=== PATIENT | female | born 1965 | race Hispanic/Latino ===

== ENCOUNTER 2018-09-09 15:37 | Inpatient (IN) | payer MEDICARE ==
--- NOTE | 2018-09-09 16:06 | Emergency Department Report ---
Blank Doc - Documentation Documentation: 53 y/o female with a history of COPD comes in c/o cough and SOB. CXR, cbc, cmp
--- NOTE | 2018-09-09 16:36 | XRay Report ---
XR CHEST ROUTINE 2V CLINICAL INDICATION: Female, 53 years of age. sob COMPARISON: None. Findings: Frontal and lateral views of the chest were obtained. Cardiac silhouette is within normal limits. No focal consolidation or effusion. No pneumothorax. Visualized bony structures are grossly intact. IMPRESSION: No focal consolidation or effusion. This document is electronically signed by Patel Ellington DO., September 09 2018 04:34:32 PM ET
[2018-09-09 16:59] LABS: Basophils % (Auto) 0.4 % (0.0-1.8); Eosinophils # (Auto) 0.2 K/mm3 (0.0-0.4); Eosinophils % (Auto) 2.5 % (0.0-4.3); Hematocrit 40.5 % (30.3-42.9); Hemoglobin 13.8 gm/dl (10.1-14.3); Lymphocytes # (Auto) 2.3 K/mm3 (1.2-5.4); Lymphocytes % (Auto) 25.1 % (13.4-35.0); Mean Corpuscular HGB Conc 34 % (30-34); Mean Corpuscular Volume 94 fl (79-97); Monocytes # (Auto) 0.5 K/mm3 (0.0-0.8); Monocytes % (Auto) 5.6 % (0.0-7.3); Platelet Count 201 K/mm3 (140-440); Red Blood Count 4.31 M/mm3 (3.65-5.03); Red Cell Distribution Width 13.4 % (13.2-15.2)
[2018-09-09] MEDS ORDERED: PROVENTIL IH ONE (17:03)
[2018-09-09] MEDS ORDERED: ATROVENT IH ONE (17:03)
[2018-09-09] MEDS ORDERED: SOLU-Medrol IV ONE (17:03)
[2018-09-09] MEDS ORDERED: MORPHINE IV ONE (17:03)
[2018-09-09 17:09] LABS: Alanine Aminotransferase 8 units/L (7-56); Albumin 3.9 g/dL (3.9-5); BUN/Creatinine Ratio 16; Blood Urea Nitrogen 8 mg/dL (7-17); Calcium 9.1 mg/dL (8.4-10.2); Hemolysis Index 16
[2018-09-09] MEDS ORDERED: ZOFRAN ONE (17:32)
[2018-09-09] MEDS ORDERED: ZOFRAN IV ONE (17:36)
--- NOTE | 2018-09-09 19:19 | Emergency Department Report ---
- General Chief Complaint: Dyspnea/Respdistress Stated Complaint: CHEST PAIN/LANCE Time Seen by Provider: 09/09/18 17:01 Source: patient, EMS Mode of arrival: Wheelchair Limitations: No Limitations - History of Present Illness Initial Comments: Patient is a 53-year-old females had some increased shortness of breath for the past 2-3 days. Patient states she had cough shortness of breath. Patient is a history of COPD. Patient states she is taken 6 vials of albuterol at home today with no relief. Patient denies any fevers chills nausea vomiting or diarrhea. Improves With: nothing Worsens With: nothing Associated Symptoms: rhinorrhea, nasal congestion, cough, shortness of breath. denies: fever, chills, myalgias, diaphoresis, headache, stiff neck, chest pain, abdominal pain, nausea, vomiting, diarrhea, dysuria, rash, confusion, right sweats, weight loss, epistaxis, hoarseness, ear pain, other - Related Data Home Medications Medication Instructions Recorded Confirmed Last Taken ALBUTEROL NEB's [Proventil] 2.5 mg IH Q6H 01/05/18 01/09/18 01/09/18 04:45 Albuterol Sulfate [Ventolin Hfa] 2 puff IH Q6H 01/05/18 01/05/18 01/08/18 Clopidogrel Bisulfate [Clopidogrel] 75 mg PO DAILY 01/05/18 01/05/18 01/08/18 Ergocalciferol [Vitamin D2] 1 cap PO QWEEK 01/05/18 01/09/18 01/05/18 Fluticasone Propionate [Flovent 2 puff IH Q6H 01/05/18 01/05/18 01/08/18 110 MCG/PUFF HFA] Furosemide [Lasix TAB] 40 mg PO DAILY 01/05/18 01/05/18 01/08/18 Gabapentin [Neurontin] 300 mg PO TID 01/05/18 01/05/18 01/08/18 Ipratropium [Atrovent] 0.5 mg IH Q6H 01/05/18 01/05/18 01/08/18 Loratadine [Claritin] 10 mg PO DAILY 01/05/18 01/05/18 01/08/18 Nitroglycerin [Nitrostat] 0.4 mg SL PRN PRN 01/05/18 01/09/18 12/12/17 Pantoprazole [Protonix] 40 mg PO QDAY 01/05/18 01/05/18 01/08/18 Ramipril 2.5 mg PO DAILY 01/05/18 01/05/18 01/08/18 Venlafaxine [Effexor] 75 mg PO DAILY 01/05/18 01/05/18 01/08/18 lamoTRIgine [Lamictal] 150 mg PO BID 01/05/18 01/05/18 01/08/18 Allergies Allergy/AdvReac Type Severity Reaction Status Date / Time aspirin Allergy Anaphylaxis Verified 09/09/18 15:41 ibuprofen Allergy Anaphylaxis Verified 09/09/18 15:41 naproxen [From Aleve] Allergy Anaphylaxis Verified 09/09/18 15:41 NSAIDS (Non-Steroidal Allergy Anaphylaxis Verified 09/09/18 15:41 Anti-Inflamma ED Review of Systems ROS: Stated complaint: CHEST PAIN/LANCE Other details as noted in HPI Comment: All other systems reviewed and negative ED Past Medical Hx - Past Medical History Hx Hypertension: Yes Hx Diabetes: Yes Hx COPD: Yes - Surgical History Additional Surgical History: artery surgery - Social History Smoking Status: Current Every Day Smoker Substance Use Type: None - Medications Home Medications: Home Medications Medication Instructions Recorded Confirmed Last Taken Type ALBUTEROL NEB's [Proventil] 2.5 mg IH Q6H 01/05/18 01/09/18 01/09/18 04:45 History Albuterol Sulfate [Ventolin Hfa] 2 puff IH Q6H 01/05/18 01/05/18 01/08/18 History Clopidogrel Bisulfate [Clopidogrel] 75 mg PO DAILY 01/05/18 01/05/18 01/08/18 History Ergocalciferol [Vitamin D2] 1 cap PO QWEEK 01/05/18 01/09/18 01/05/18 History Fluticasone Propionate [Flovent 2 puff IH Q6H 01/05/18 01/05/18 01/08/18 History 110 MCG/PUFF HFA] Furosemide [Lasix TAB] 40 mg PO DAILY 01/05/18 01/05/18 01/08/18 History Gabapentin [Neurontin] 300 mg PO TID 01/05/18 01/05/18 01/08/18 History Ipratropium [Atrovent] 0.5 mg IH Q6H 01/05/18 01/05/18 01/08/18 History Loratadine [Claritin] 10 mg PO DAILY 01/05/18 01/05/18 01/08/18 History Nitroglycerin [Nitrostat] 0.4 mg SL PRN PRN 01/05/18 01/09/18 12/12/17 History Pantoprazole [Protonix] 40 mg PO QDAY 01/05/18 01/05/18 01/08/18 History Ramipril 2.5 mg PO DAILY 01/05/18 01/05/18 01/08/18 History Venlafaxine [Effexor] 75 mg PO DAILY 01/05/18 01/05/18 01/08/18 History lamoTRIgine [Lamictal] 150 mg PO BID 01/05/18 01/05/18 01/08/18 History ED Physical Exam - General Limitations: No Limitations General appearance: alert, in no apparent distress - Head Head exam: Present: atraumatic, normocephalic - Eye Eye exam: Present: normal appearance - ENT ENT exam: Present: mucous membranes moist - Neck Neck exam: Present: normal inspection - Respiratory Respiratory exam: Present: respiratory distress, wheezes. Absent: normal lung sounds bilaterally, rales, rhonchi, stridor - Cardiovascular Cardiovascular Exam: Present: regular rate, normal rhythm. Absent: systolic murmur, diastolic murmur, rubs, gallop - GI/Abdominal GI/Abdominal exam: Present: soft, normal bowel sounds. Absent: distended, guarding, rebound - Extremities Exam Extremities exam: Present: normal inspection - Back Exam Back exam: Present: normal inspection - Neurological Exam Neurological exam: Present: alert, oriented X3 - Psychiatric Psychiatric exam: Present: normal affect, normal mood - Skin Skin exam: Present: warm, dry, intact, normal color. Absent: rash ED Course Vital Signs 09/09/18 09/09/18 09/09/18 15:48 17:19 18:57 Temperature 99 F 99.1 F Pulse Rate 99 H 98 H 97 H Respiratory 24 17 18 Rate Blood Pressure 131/71 Blood Pressure 125/53 96/42 [Right] O2 Sat by Pulse 97 93 92 Oximetry ED Medical Decision Making - Lab Data Result diagrams: 09/09/18 16:09 09/09/18 16:06 Lab Results 09/09/18 09/09/18 Range/Units 16:06 16:09 WBC 9.2 (4.5-11.0) K/mm3 RBC 4.31 (3.65-5.03) M/mm3 Hgb 13.8 (10.1-14.3) gm/dl Hct 40.5 (30.3-42.9) % MCV 94 (79-97) fl MCH 32 (28-32) pg MCHC 34 (30-34) % RDW 13.4 (13.2-15.2) % Plt Count 201 (140-440) K/mm3 Lymph % (Auto) 25.1 (13.4-35.0) % [place] % (Auto) 5.6 (0.0-7.3) % Eos % (Auto) 2.5 (0.0-4.3) % Baso % (Auto) 0.4 (0.0-1.8) % Lymph # 2.3 (1.2-5.4) K/mm3 [place] # 0.5 (0.0-0.8) K/mm3 Eos # 0.2 (0.0-0.4) K/mm3 Baso # 0.0 (0.0-0.1) K/mm3 Seg Neutrophils % 66.4 (40.0-70.0) % Seg Neutrophils # 6.1 (1.8-7.7) K/mm3 Sodium 138 (137-145) mmol/L Potassium 4.3 (3.6-5.0) mmol/L Chloride 104.4 (98-107) mmol/L Carbon Dioxide 22 (22-30) mmol/L Anion Gap 16 mmol/L BUN 8 (7-17) mg/dL Creatinine 0.5 L (0.7-1.2) mg/dL Estimated GFR > 60 ml/min BUN/Creatinine Ratio 16 % Glucose 86 (65-100) mg/dL Calcium 9.1 (8.4-10.2) mg/dL Total Bilirubin 0.30 (0.1-1.2) mg/dL AST 14 (5-40) units/L ALT 8 (7-56) units/L Alkaline Phosphatase 83 (35-129) units/L Total Protein 7.2 (6.3-8.2) g/dL Albumin 3.9 (3.9-5) g/dL Albumin/Globulin Ratio 1.2 % - EKG Data -: EKG Interpreted by Me EKG shows normal: sinus rhythm, axis, intervals, QRS complexes, ST-T waves Rate: tachycardia - Radiology Data Radiology results: image reviewed (hyperinflation consistent with COPD) - Medical Decision Making Patient received a hour-long neb treatments steroids because continued to have wheezing here in the emergency department. Patient to be admitted to the hospitalist service at this time. Critical Care Time: Yes (30) Critical care attestation.: If time is entered above; I have spent that time in minutes in the direct care of this critically ill patient, excluding procedure time. ED Disposition Clinical Impression: COPD exacerbation Disposition: OP ADMIT IP TO THIS HOSP Is pt being admited?: Yes Does the pt Need Aspirin: No Condition: Stable Instructions: Chronic Obstructive Pulmonary Disease (ED) Referrals: CURT STANLEY MD [Primary Care Provider] - 3-5 Days Time of Disposition: 19:19
[2018-09-09] MEDS ORDERED: DUONEB *Not for PRN Use IH ONE (20:42)
--- NOTE | 2018-09-09 21:32 | History and Physical Report ---
History of Present Illness Date of examination: 09/09/18 Date of admission: 09/09/18 19:19 Chief complaint: Increasing shortness of breath and wheezing for 3 days History of present illness: 53-year-old female with history of COPD, vitamin D deficiency, cor onary artery disease, congestive heart failure, hypertension, depression and peripheral neuropathy comes in for increasing shortness of breath and wheezing for last 3 days. No fever or chills. Cough productive of mucoid sputum. Patient was admitted about 8-9 months ago for the same symptoms. No exacerbating or relieving factors. Past Medical History Hypertension: Yes Diabetes: Yes COPD: Yes Surgical History Additional Surgical History: artery surgery Social History Smoking Status: Current Every Day Smoker Substance Use Type: None Family history Htn Review of Systems ROS: Stated complaint: CHEST PAIN/LANCE Other details as noted in HPI Comment: All other systems reviewed and negative Medications and Allergies Allergies Allergy/AdvReac Type Severity Reaction Status Date / Time aspirin Allergy Anaphylaxis Verified 09/09/18 15:41 ibuprofen Allergy Anaphylaxis Verified 09/09/18 15:41 naproxen [From Aleve] Allergy Anaphylaxis Verified 09/09/18 15:41 NSAIDS (Non-Steroidal Allergy Anaphylaxis Verified 09/09/18 15:41 Anti-Inflamma Home Medications Medication Instructions Recorded Confirmed Last Taken Type ALBUTEROL NEB's [Proventil] 2.5 mg IH Q6H 01/05/18 01/09/18 01/09/18 04:45 Hi story Albuterol Sulfate [Ventolin Hfa] 2 puff IH Q6H 01/05/18 01/05/18 01/08/18 History Clopidogrel Bisulfate [Clopidogrel] 75 mg PO DAILY 01/05/18 01/05/18 01/08/18 History Ergocalciferol [Vitamin D2] 1 cap PO QWEEK 01/05/18 01/09/18 01/05/18 History Fluticasone Propionate [Flovent 2 puff IH Q6H 01/05/18 01/05/18 01/08/18 History 110 MCG/PUFF HFA] Furosemide [Lasix TAB] 40 mg PO DAILY 01/05/18 01/05/18 01/08/18 History Gabapentin [Neurontin] 300 mg PO TID 01/05/18 01/05/18 01/08/18 History Ipratropium [Atrovent] 0.5 mg IH Q6H 01/05/18 01/05/18 01/08/18 History Loratadine [Claritin] 10 mg PO DAILY 01/05/18 01/05/18 01/08/18 History Nitroglycerin [Nitrostat] 0.4 mg SL PRN PRN 01/05/18 01/09/18 12/12/17 History Pantoprazole [Protonix] 40 mg PO QDAY 01/05/18 01/05/18 01/08/18 History Ramipril 2.5 mg PO DAILY 01/05/18 01/05/18 01/08/18 History Venlafaxine [Effexor] 75 mg PO DAILY 01/05/18 01/05/18 01/08/18 History lamoTRIgine [Lamictal] 150 mg PO BID 01/05/18 01/05/18 01/08/18 History Exam - Constitutional Vitals: Temp Pulse Resp BP Pulse Ox 99.4 F 103 H 20 94/48 95 09/09/18 20:00 09/09/18 20:00 09/09/18 20:00 09/09/18 20:00 09/09/18 20:00 General appearance: Present: no acute distress, well-nourished - EENT Eyes: Present: PERRL ENT: hearing intact, clear oral mucosa - Neck Neck: Present: supple, normal ROM - Respiratory Respiratory effort: normal Respiratory: bilateral: diminished, rhonchi - Cardiovascular Heart rate: 78 Rhythm: regular Heart Sounds: Present: S1 & S2. Absent: rub, click - Extremities Extremities: pulses symmetrical, No edema Peripheral Pulses: within normal limits - Abdominal General gastrointestinal: Present: soft, non-tender, non-distended, normal bowel sounds Female genitourinary: Present: normal - Rectal Rectal Exam: deferred - Integumentary Integumentary: Present: clear, warm, dry - Musculoskeletal Musculoskeletal: gait normal, strength equal bilaterally - Psychiatric Psychiatric: appropriate mood/affect, intact judgment & insight - Neurologic Neurologic: CNII-XII intact, moves all extremities - Allied Health Allied health notes reviewed: nursing, case management Results - Labs CBC & Chem 7: 09/09/18 16:09 09/09/18 16:06 Labs: Laboratory Last Values WBC 9.2 K/mm3 (4.5-11.0) 04/28/19 16:09 RBC 4.31 M/mm3 (3.65-5.03) 09/09/18 16:09 Hgb 13.8 gm/dl (10.1-14.3) 09/09/18 16:09 Hct 40.5 % (30.3-42.9) 09/09/18 16:09 MCV 94 fl (79-97) 09/09/18 16:09 MCH 32 pg (28-32) 09/09/18 16:09 MCHC 34 % (30-34) 09/09/18 16:09 RDW 13.4 % (13.2-15.2) 09/09/18 16:09 Plt Count 201 K/mm3 (140-440) 09/09/18 16:09 Lymph % (Auto) 25.1 % (13.4-35.0) 09/09/18 16:09 [place] % (Auto) 5.6 % (0.0-7.3) 09/09/18 16:09 Eos % (Auto) 2.5 % (0.0-4.3) 09/09/18 16:09 Baso % (Auto) 0.4 % (0.0-1.8) 09/09/18 16:09 Lymph # 2.3 K/mm3 (1.2-5.4) 09/09/18 16:09 [place] # 0.5 K/mm3 (0.0-0.8) 09/09/18 16:09 Eos # 0.2 K/mm3 (0.0-0.4) 09/09/18 16:09 Baso # 0.0 K/mm3 (0.0-0.1) 09/09/18 16:09 Seg Neutrophils % 66.4 % (40.0-70.0) 09/09/18 16:09 Seg Neutrophils # 6.1 K/mm3 (1.8-7.7) 09/09/18 16:09 Sodium 138 mmol/L (137-145) 09/09/18 16:06 Potassium 4.3 mmol/L (3.6-5.0) 09/09/18 16:06 Chloride 104.4 mmol/L (98-107) 09/09/18 16:06 Carbon Dioxide 22 mmol/L (22-30) 09/09/18 16:06 Anion Gap 16 mmol/L 09/09/18 16:06 BUN 8 mg/dL (7-17) 09/09/18 16:06 Creatinine 0.5 mg/dL (0.7-1.2) L 09/09/18 16:06 Estimated GFR > 60 ml/min 09/09/18 16:06 BUN/Creatinine Ratio 16 % 09/09/18 16:06 Glucose 86 mg/dL (65-100) 09/09/18 16:06 Calcium 9.1 mg/dL (8.4-10.2) 09/09/18 16:06 Total Bilirubin 0.30 mg/dL (0.1-1.2) 09/09/18 16:06 AST 14 units/L (5-40) 09/09/18 16:06 ALT 8 units/L (7-56) 09/09/18 16:06 Alkaline Phosphatase 83 units/L (35-129) 09/09/18 16:06 Total Protein 7.2 g/dL (6.3-8.2) 09/09/18 16:06 Albumin 3.9 g/dL (3.9-5) 09/09/18 16:06 Albumin/Globulin Ratio 1.2 % 09/09/18 16:06 - Imaging and Cardiology EKG: report reviewed Imaging and Cardiology: Chest x-ray Findings: Frontal and lateral views of the chest were obtained. Cardiac silhouette is within normal limits. No focal consolidation or effusion. No pneumothorax. Visualized bony structures are grossly intact. IMPRESSION: No focal consolidation or effusion. EKG Sinus tachycardia nonspecific T-wave abnormalities heart rate of 106 Assessment and Plan Advance Directives: Yes (full code) VTE prophylaxis?: Chemical Plan of care discussed with patient/family: Yes - Patient Problems (1) Acute respiratory failure Current Visit: Yes Status: Acute Qualifiers: Respiratory failure complication: hypoxia Qualified Code(s): J96.01 - Acute respiratory failure with hypoxia Plan to address problem: Patient initiated on IV Solu-Medrol 50% Ventimask IV antibiotics and nebulizer treatments. BiPAP if necessary Intubation for necessary (2) COPD exacerbation Current Visit: Yes Status: Acute Plan to address problem: IV Solu-Medrol nebulizer treatments and IV antibiotics BiPAP if necessary Intubation if necessary (3) Coronary artery disease Current Visit: Yes Status: Chronic Qualifiers: Coronary Disease-Associated Artery/Lesion type: [place] artery [place] vs. transplanted heart: [place] heart Plan to address problem: Continue Plavix and aspirin and nitroglycerin when necessary (4) Hypertension Current Visit: Yes Status: Chronic Qualifiers: Hypertension type: essential hypertension Qualified Code(s): I10 - Essential (primary) hypertension Plan to address problem: Blood pressure is borderline Will hold the Ramipril (5) Peripheral neuropathy Current Visit: Yes Status: Acute Qualifiers: Peripheral neuropathy type: polyneuropathy, unspecified Qualified Code(s): G62.9 - Polyneuropathy, unspecified Plan to address problem: Continue gabapentin (6) GERD (gastroesophageal reflux disease) Current Visit: Yes Status: Chronic Qualifiers: Esophagitis presence: with esophagitis Qualified Code(s): K21.0 - Gastro- esophageal reflux disease with esophagitis Plan to address problem: Continue Protonix (7) Vitamin D deficiency Current Visit: Yes Status: Acute Plan to address problem: Continue vitamin D (8) DVT prophylaxis Current Visit: Yes Status: Acute Plan to address problem: On Lovenox and GI prophylaxis
[2018-09-09] MEDS ORDERED: TYLENOL PO PRN (21:37)
[2018-09-09] MEDS ORDERED: ZOFRAN IV PRN (21:37)
[2018-09-09] MEDS ORDERED: DILAUDID IV PRN (21:38)
[2018-09-09] MEDS ORDERED: PROAIR IH SCH (21:45)
[2018-09-09] MEDS ORDERED: FLUTICASONE PROPIONATE IH SCH (21:45)
[2018-09-09] MEDS ORDERED: PROVENTIL IH SCH (21:45)
[2018-09-09] MEDS ORDERED: NACL 0.9% 1000 ML 1,000 ML IV SCH (22:00)
[2018-09-09] MEDS ORDERED: NON-FORMULARY (Lamotrigine [Lamictal] 150 MG) PO SCH (22:00)
[2018-09-10] MEDS: ROCEPHIN/NS 2 GM/100 ML 2 GM/100 ML BAG IV SCH ×2 (00:31→22:42)
[2018-09-10] MEDS: ZITHROMAX 500 MG in NACL 0.9% 250ML 250 ML IV SCH ×2 (00:35→21:09)
[2018-09-10] MEDS: SOLU-Medrol IV SCH ×4 (00:37→21:11)
[2018-09-10] MEDS: LaMICtal PO SCH ×3 (00:39→21:05)
[2018-09-10] MEDS: LASIX PO SCH ×2 (00:40→09:01)
[2018-09-10] MEDS: PLAVIX PO SCH ×2 (00:40→09:06)
[2018-09-10] MEDS: CLARITIN PO SCH ×2 (00:41→09:01)
[2018-09-10] MEDS: PROTONIX PO SCH ×2 (00:41→09:06)
[2018-09-10] MEDS: SODIUM CHLORIDE FLUSH SYRINGE 10 ML IV SCH ×3 (00:42→21:11)
[2018-09-10] MEDS: PERCOCET 5/325 PO PRN ×2 (05:06→21:25)
--- NOTE | 2018-09-10 07:07 | Progress Note ---
Assessment and Plan Assessment and plan: Patient is a 53 yo woman with a history of tobacco dependency, Bipolar disorder, PAD s/p right common femoral artery bypass followed by endarterectomy, morbid obesity bmi 66.6, COPD, vitamin D deficiency, coronary artery disease, congestive heart failure, hypertension, depression and peripheral neuropathy who presents to [facility] ED with sob and cough. She was admitted for respiratory failure due to AECOPD as pO2 was on 67 on 2 liters O2. 2v CXR unremarkable. Acute Hypoxic Respiratory failure: treat with O2, consult Pulmonology AE COPD: treat with steroids, nebs, abx Tobacco dependency: strongly encourage cessation DVT/GI ppx reviewed on lovenox and protonix Home reconciliation done but I don't think is it up to date, why lamictal==>bipolar, effexor==>not on anymore, I have asked the nurse to update home medications. full code Disposition: continue inpatient care, daily O2 weaning attempts History Interval history: Patient was seen and examined. Follow-up on current diagnosis of COPD, better with iv steroids. Overnight uneventful. Patient denies any chest pain, nausea/vomiting or severe headaches. Imaging, nursing note, chart, labs and old chart reviewed. Discussed with patient. Hospitalist Physical - Physical exam Narrative exam: Gen: WDWN, NAD, Awake, Alert, Orientated x 3, HEENT: NCAT, EOMI, PERRL, OP Clear Neck: supple, no adenopathy, no thyromegaly, no JVD CVS/Heart: RRR, normal S1S2, pulses present bilaterally Chest/Lungs: diminished bs bilaterally, Symmetrical chest expansion, good air entry bilaterally GI/Abdomen: soft, NTND, good bowel sounds, no guarding or rebound /Bladder: no suprapubic tenderness, no CVA or paraspinal tenderness Extermity/Skin: no c/c/e, no obvious rash MSK: FROM x 4 Neuro: CN 2-12 grossly intact, no new focal deficits Psych: calm - Constitutional Vitals: Temp Pulse Resp BP Pulse Ox 97.6 F 84 20 127/64 92 09/10/18 04:40 09/10/18 04:40 09/10/18 04:40 09/10/18 04:40 09/10/18 04:40 General appearance: Present: no acute distress, well-nourished Results - Labs CBC & Chem 7: 09/09/18 16:09 09/10/18 06:51 Labs: Laboratory Last Values WBC 9.2 K/mm3 (4.5-11.0) 09/09/18 16:09 RBC 4.31 M/mm3 (3.65-5.03) 09/09/18 16:09 Hgb 13.8 gm/dl (10.1-14.3) 09/09/18 16:09 Hct 40.5 % (30.3-42.9) 09/09/18 16:09 MCV 94 fl (79-97) 09/09/18 16:09 MCH 32 pg (28-32) 09/09/18 16:09 MCHC 34 % (30-34) 09/09/18 16:09 RDW 13.4 % (13.2-15.2) 09/09/18 16:09 Plt Count 201 K/mm3 (140-440) 09/09/18 16:09 Lymph % (Auto) 25.1 % (13.4-35.0) 09/09/18 16:09 [place] % (Auto) 5.6 % (0.0-7.3) 09/09/18 16:09 Eos % (Auto) 2.5 % (0.0-4.3) 09/09/18 16:09 Baso % (Auto) 0.4 % (0.0-1.8) 09/09/18 16:09 Lymph # 2.3 K/mm3 (1.2-5.4) 09/09/18 16:09 [place] # 0.5 K/mm3 (0.0-0.8) 09/09/18 16:09 Eos # 0.2 K/mm3 (0.0-0.4) 09/09/18 16:09 Baso # 0.0 K/mm3 (0.0-0.1) 09/09/18 16:09 Seg Neutrophils % 66.4 % (40.0-70.0) 09/09/18 16:09 Seg Neutrophils # 6.1 K/mm3 (1.8-7.7) 09/09/18 16:09 POC ABG pH 7.347 (7.35-7.45) L 09/09/18 23:23 POC ABG pCO2 39.6 (35-45) 09/09/18 23:23 POC ABG pO2 67 (80-105) L 09/09/18 23:23 POC ABG HCO3 21.7 (22-26 mml/L) 09/09/18 23:23 POC ABG Total CO2 23 (23-27mmol/L) 09/09/18 23:23 POC ABG O2 Sat 92 09/09/18 23:23 POC ABG Base Excess -4 ((-2) - (+3)mmol/L) 09/09/18 23:23 FiO2 28 % 09/09/18 23:23 Sodium 138 mmol/L (137-145) 09/09/18 16:06 Potassium 4.3 mmol/L (3.6-5.0) 09/09/18 16:06 Chloride 104.4 mmol/L (98-107) 09/09/18 16:06 Carbon Dioxide 22 mmol/L (22-30) 09/09/18 16:06 Anion Gap 16 mmol/L 09/09/18 16:06 BUN 8 mg/dL (7-17) 09/09/18 16:06 Creatinine 0.5 mg/dL (0.7-1.2) L 09/09/18 16:06 Estimated GFR > 60 ml/min 09/09/18 16:06 BUN/Creatinine Ratio 16 % 09/09/18 16:06 Glucose 86 mg/dL (65-100) 09/09/18 16:06 Hemoglobin A1c 5.8 % (4-6) 09/09/18 16:09 Calcium 9.1 mg/dL (8.4-10.2) 09/09/18 16:06 Total Bilirubin 0.30 mg/dL (0.1-1.2) 09/09/18 16:06 AST 14 units/L (5-40) 09/09/18 16:06 ALT 8 units/L (7-56) 09/09/18 16:06 Alkaline Phosphatase 83 units/L (35-129) 09/09/18 16:06 Total Protein 7.2 g/dL (6.3-8.2) 09/09/18 16:06 Albumin 3.9 g/dL (3.9-5) 09/09/18 16:06 Albumin/Globulin Ratio 1.2 % 09/09/18 16:06 Active Medications - Current Medications Current Medications: Generic Name Dose Route Start Last Admin Trade Name Freq PRN Reason Stop Dose Admin Acetaminophen 650 mg 09/09/18 21:37 Tylenol PO Q4H PRN Pain MILD(1-3)/Fever >100.5/[place] Albuterol 2.5 mg 09/09/18 21:40 Proventil IH Q4HRT PRN Shortness Of Breath Albuterol/Ipratropium 1 ampul 09/10/18 08:00 Duoneb *Not For Prn Use* IH QIDRT BISHOP Budesonide 1 mg 09/10/18 08:00 Pulmicort IH Q12HRT BISHOP Clopidogrel Bisulfate 75 mg 09/09/18 22:00 09/10/18 00:40 Plavix PO 75 mg DAILY BISHOP Administration Enoxaparin Sodium 40 mg 09/10/18 22:00 Lovenox SUB-Q QDAY@2200 [facility] Ergocalciferol 50,000 unit 09/13/18 10:00 Vitamin D2 PO Th BISHOP Furosemide 40 mg 09/09/18 22:00 09/10/18 00:40 Lasix PO 40 mg DAILY BISHOP Administration Gabapentin 300 mg 09/10/18 08:00 Neurontin PO TID BISHOP Hydromorphone HCl 0.5 mg 09/09/18 21:38 Dilaudid IV Q3H PRN Pain , Severe (7-10) Sodium Chloride 1,000 mls @ 75 mls/hr 09/09/18 22:00 09/10/18 00:22 Nacl 0.9% 1000 Ml IV 09/10/18 11:00 75 mls/hr DIRECT BISHOP Administration Azithromycin 500 mg/ Sodium 250 mls @ 250 mls/hr 09/09/18 22:00 09/10/18 00:35 Chloride IV 250 mls/hr Q24HR@2200 BISHOP Administration Ceftriaxone Sodium 2 gm in 100 mls @ 200 mls/hr 09/09/18 22:00 09/10/18 00:31 Rocephin/Ns 2 Gm/100 Ml IV 200 mls/hr Q24HR@2200 BISHOP Administration Protocol Lamotrigine 150 mg 09/09/18 22:00 09/10/18 00:39 Lamictal PO 150 mg BID BISHOP Administration Loratadine 10 mg 09/09/18 22:00 09/10/18 00:41 Claritin PO 10 mg DAILY BISHOP Administration Methylprednisolone Sodium Succinate 60 mg 09/09/18 22:00 09/10/18 05:07 Solu-Medrol IV 60 mg Q8HR BISHOP Administration Ondansetron HCl 4 mg 09/09/18 21:37 Zofran IV Q8H PRN Nausea And Vomiting Oxycodone/Acetaminophen 1 tab 09/09/18 21:38 09/10/18 05:06 Percocet 5/325 PO 1 tab Q6H PRN Administration Pain, Moderate (4-6) Pantoprazole Sodium 40 mg 09/09/18 22:00 09/10/18 00:41 Protonix PO 40 mg QDAY BISHOP Administration Sodium Chloride 10 ml 09/09/18 22:00 09/10/18 00:42 Sodium Chloride Flush Syringe 10 Ml IV 10 ml BID BISHOP Administration Sodium Chloride 10 ml 09/09/18 21:37 Sodium Chloride Flush Syringe 10 Ml IV PRN PRN LINE FLUSH Venlafaxine HCl 75 mg 09/10/18 10:00 Effexor PO DAILY BISHOP
[2018-09-10] MEDS: DUONEB *Not for PRN Use IH SCH ×4 (07:43→19:30)
[2018-09-10 07:46] LABS: Alanine Aminotransferase 9 units/L (7-56); Albumin 3.8 g/dL (3.9-5); BUN/Creatinine Ratio 26; Blood Urea Nitrogen 13 mg/dL (7-17); Calcium 8.5 mg/dL (8.4-10.2); Hemolysis Index 2
[2018-09-10] MEDS ORDERED: PULMICORT IH SCH (08:00)
[2018-09-10] MEDS: NEURONTIN PO SCH ×3 (08:54→21:09)
[2018-09-10] MEDS ORDERED: EFFEXOR PO SCH (10:00)
[2018-09-10 11:03] LABS: Hemoglobin 12.9 gm/dl (10.1-14.3); Mean Corpuscular Volume 95 fl (79-97); Red Blood Count 4.01 M/mm3 (3.65-5.03)
[2018-09-10 11:04] LABS: Mean Corpuscular HGB Conc 34 % (30-34); Platelet Count 180 K/mm3 (140-440); Red Cell Distribution Width 13.5 % (13.2-15.2)
[2018-09-10] MEDS ORDERED: D50W (25GM) Syringe IV PRN (13:28)
[2018-09-10 13:55] LABS: Basophils % (Manual) 0 % (0.0-1.8); Eosinophils % (Manual) 0 % (0.0-4.3); Total Cells Counted 100
[2018-09-10 13:56] LABS: Platelet Estimate Consistent w Auto; RBC Morphology Normal
[2018-09-10] MEDS ORDERED: HumaLOG SUB-Q ONE (14:25)
--- NOTE | 2018-09-10 14:27 | Consultation ---
History of Present Illness Consult date: 09/10/18 Reason for consult: dyspnea, cough History of present illness: PULMONARY AND CRITICAL CARE CONSULTATION DR. TAVERA THANK YOU FOR ASKING US TO PARTICIPATE IN THE CARE OF THIS PATIENT. 53-year-old female with history of COPD, vitamin D deficiency, coronary artery disease, congestive heart failure, hypertension, depression and peripheral neuropathy comes in for increasing shortness of breath and wheezing for last 3 days. No fever or chills. Cough productive of mucoid sputum. Patient was admitted about 8-9 months ago for the same symptoms. Patient has history of smoking. Patient still smoking. Counselled to stop smoking.Denies alcohol or drug abuse.Allergic to multiple medications Aspirin, Ibuprofen, Naproxin,ASAIDS. Past History Past Medical History: CAD, COPD, diabetes, hypertension Medications and Allergies Allergies Allergy/AdvReac Type Severity Reaction Status Date / Time aspirin Allergy Anaphylaxis Verified 09/09/18 15:41 ibuprofen Allergy Anaphylaxis Verified 09/09/18 15:41 naproxen [From Aleve] Allergy Anaphylaxis Verified 09/09/18 15:41 NSAIDS (Non-Steroidal Allergy Anaphylaxis Verified 09/09/18 15:41 Anti-Inflamma Home Medications Medication Instructions Recorded Confirmed Last Taken Type ALBUTEROL NEB's [Proventil] 2.5 mg IH Q6H PRN 01/05/18 09/10/18 1 Day Ago History ~09/09/18 Albuterol Sulfate [Ventolin Hfa] 2 puff IH Q6H PRN 01/05/18 09/10/18 1 Day Ago History ~09/09/18 Clopidogrel Bisulfate [Clopidogrel] 75 mg PO DAILY 01/05/18 09/10/18 1 Day Ago History ~09/09/18 Ergocalciferol [Vitamin D2] 1 cap PO QWEEK 01/05/18 09/10/18 3 Days Ago History ~09/07/18 Fluticasone Propionate [Flovent 2 puff IH BID 01/05/18 09/10/18 1 Day Ago History 110 MCG/PUFF HFA] ~09/09/18 Furosemide [Lasix TAB] 40 mg PO DAILY 01/05/18 09/10/18 1 Day Ago History ~09/09/18 Gabapentin [Neurontin] 300 mg PO TID 01/05/18 09/10/18 1 Day Ago History ~09/09/18 Ipratropium [Atrovent] 0.5 mg IH Q6H 01/05/18 09/10/18 09/09/18 History Loratadine [Claritin] 10 mg PO DAILY 01/05/18 09/10/18 1 Day Ago History ~09/09/18 Nitroglycerin [Nitrostat] 0.4 mg SL PRN PRN 01/05/18 09/10/18 12/12/17 History Pantoprazole [Protonix] 40 mg PO QDAY 01/05/18 09/10/18 1 Day Ago History ~09/09/18 Ramipril 2.5 mg PO DAILY 01/05/18 09/10/18 1 Day Ago History ~09/09/18 Venlafaxine [Effexor] 75 mg PO DAILY 01/05/18 09/10/18 1 Day Ago History ~09/09/18 lamoTRIgine [Lamictal] 150 mg PO TID 01/05/18 09/10/18 1 Day Ago History ~09/09/18 Active Meds: Active Medications Acetaminophen (Tylenol) 650 mg PO Q4H PRN PRN Reason: Pain MILD(1-3)/Fever >100.5/[place] Albuterol (Proventil) 2.5 mg IH Q4HRT PRN PRN Reason: Shortness Of Breath Albuterol/Ipratropium (Duoneb *Not For Prn Use*) 1 ampul IH QIDRT COUNT INCLUDES THE [facility] Last Admin: 09/10/18 11:06 Dose: 1 ampul Documented by: Azithromycin (Zithromax) 500 mg PO QHS COUNT INCLUDES THE [facility] Stop: 09/13/18 22:01 Budesonide (Pulmicort) 1 mg IH Q12HRT COUNT INCLUDES THE [facility] Last Admin: 09/10/18 07:42 Dose: 1 mg Documented by: Clopidogrel Bisulfate (Plavix) 75 mg PO DAILY COUNT INCLUDES THE [facility] Last Admin: 09/10/18 09:06 Dose: 75 mg Documented by: Dextrose (D50w (25gm) Syringe) 50 ml IV PRN PRN PRN Reason: Hypoglycemia Enoxaparin Sodium (Lovenox) 40 mg SUB-Q QDAY@2200 COUNT INCLUDES THE [facility] Ergocalciferol (Vitamin D2) 50,000 unit PO Th COUNT INCLUDES THE [facility] Furosemide (Lasix) 40 mg PO DAILY COUNT INCLUDES THE [facility] Last Admin: 09/10/18 09:01 Dose: 40 mg Documented by: Gabapentin (Neurontin) 300 mg PO TID COUNT INCLUDES THE [facility] Last Admin: 09/10/18 08:54 Dose: 300 mg Documented by: Hydromorphone HCl (Dilaudid) 0.5 mg IV Q3H PRN PRN Reason: Pain , Severe (7-10) Azithromycin 500 mg/ Sodium (Chloride) 250 mls @ 250 mls/hr IV Q24HR@2200 COUNT INCLUDES THE [facility] Stop: 09/10/18 23:59 Last Admin: 09/10/18 00:35 Dose: 250 mls/hr Documented by: Ceftriaxone Sodium (Rocephin/Ns 2 Gm/100 Ml) 2 gm in 100 mls @ 200 mls/hr IV Q24HR@2200 COUNT INCLUDES THE [facility]; Protocol Last Admin: 09/10/18 00:31 Dose: 200 mls/hr Documented by: Insulin Human Lispro (Humalog) 0 unit SUB-Q ACHS COUNT INCLUDES THE [facility]; Protocol Lamotrigine (Lamictal) 150 mg PO BID COUNT INCLUDES THE [facility] Last Admin: 09/10/18 09:05 Dose: 150 mg Documented by: Loratadine (Claritin) 10 mg PO DAILY COUNT INCLUDES THE [facility] Last Admin: 09/10/18 09:01 Dose: 10 mg Documented by: Methylprednisolone Sodium Succinate (Solu-Medrol) 60 mg IV Q8HR COUNT INCLUDES THE [facility] Last Admin: 09/10/18 05:07 Dose: 60 mg Documented by: Ondansetron HCl (Zofran) 4 mg IV Q8H PRN PRN Reason: Nausea And Vomiting Oxycodone/Acetaminophen (Percocet 5/325) 1 tab PO Q6H PRN PRN Reason: Pain, Moderate (4-6) Last Admin: 09/10/18 05:06 Dose: 1 tab Documented by: Pantoprazole Sodium (Protonix) 40 mg PO QDAY COUNT INCLUDES THE [facility] Last Admin: 09/10/18 09:06 Dose: 40 mg Documented by: Sodium Chloride (Sodium Chloride Flush Syringe 10 Ml) 10 ml IV BID COUNT INCLUDES THE [facility] Last Admin: 09/10/18 09:06 Dose: 10 ml Documented by: Sodium Chloride (Sodium Chloride Flush Syringe 10 Ml) 10 ml IV PRN PRN PRN Reason: LINE FLUSH Review of Systems All systems: negative Physical Examination Vital signs: Vital Signs Temp Pulse Resp BP Pulse Ox 99 F 99 H 24 131/71 97 09/09/18 15:48 09/09/18 15:48 09/09/18 15:48 09/09/18 15:48 09/09/18 15:48 General appearance: no acute distress, alert Eyes: non-icteric ENT: oropharynx moist Neck: supple, no JVD Ascultation: Bilateral: diminished breath sounds Cardiovascular: regular rate and rhythm Gastrointestinal: normoactive bowel sounds, soft, non-tender Integumentary: normal Extremities: no cyanosis, no edema Musculoskeletal: no deformities normal mental status, non-focal exam, pupils equal and round, CN II-XII normal mood appropriate Results - Laboratory Findings CBC and BMP: 09/10/18 06:51 09/10/18 06:51 ABG POC ABG pH 7.347 (7.35-7.45) L 09/09/18 23:23 POC ABG pCO2 39.6 (35-45) 09/09/18 23:23 POC ABG pO2 67 (80-105) L 09/09/18 23:23 POC ABG HCO3 21.7 (22-26 mml/L) 09/09/18 23:23 POC ABG Total CO2 23 (23-27mmol/L) 09/09/18 23:23 POC ABG O2 Sat 92 09/09/18 23:23 Abnormal lab findings: Abnormal Labs 09/09/18 09/09/18 09/10/18 16:06 23:23 06:51 Seg Neuts % (Manual) 97.0 H Lymphocytes % (Manual) 2.0 L Lymphocytes # (Manual) 0.1 L POC ABG pH 7.347 L POC ABG pO2 67 L Creatinine 0.5 L Glucose Albumin 09/10/18 06:51 Seg Neuts % (Manual) Lymphocytes % (Manual) Lymphocytes # (Manual) POC ABG pH POC ABG pO2 Creatinine 0.5 L Glucose 140 H Albumin 3.8 L - Diagnostic Findings Chest x-ray: report reviewed (NO FOCAL INFILTRATE OR EFFUSION.), image reviewed Assessment and Plan 53-year-old female with history of COPD, vitamin D deficiency, coronary artery disease, congestive heart failure, hypertension, depression and peripheral neuropathy comes in for increasing shortness of breath and wheezing for last 3 days. No fever or chills. Cough productive of mucoid sputum. Patient was admitted about 8-9 months ago for the same symptoms. Patient has history of smoking. Patient still smoking. Counselled to stop smoking.Denies alcohol or drug abuse.Allergic to multiple medications Aspirin, Ibuprofen, Nap roxin,ASAIDS. - Patient Problems (1) Acute respiratory failure Current Visit: Yes Status: Acute Qualifiers: Respiratory failure complication: hypoxia Qualified Code(s): J96.01 - Acute respiratory failure with hypoxia Plan to address problem: O2 3 litres via nasal canula. Albuterol/atrovent aerosol treatments q 6 hours. Continue I/V solumedrol. Continue Zithromax and ceftrioxone. Continue S/C Lovenox. Continue Protonix. (2) COPD exacerbation Current Visit: Yes Status: Acute Plan to address problem: O2 3 litres via nasal canula. Albuterol/atrovent aerosol treatments q 6 hours. Continue I/V solumedrol. Continue Zithromax and ceftrioxone. Continue S/C Lovenox. Continue Protonix. (3) Coronary artery disease Current Visit: Yes Status: Chronic Qualifiers: Coronary Disease-Associated Artery/Lesion type: [place] artery [place] vs. transplanted heart: [place] heart Plan to address problem: Management as per cardiology. (4) GERD (gastroesophageal reflux disease) Current Visit: Yes Status: Chronic Qualifiers: Esophagitis presence: with esophagitis Qualified Code(s): K21.0 - Gastro- esophageal reflux disease with esophagitis Plan to address problem: Continue Protonix. (5) Hypertension Current Visit: Yes Status: Chronic Qualifiers: Hypertension type: essential hypertension Qualified Code(s): I10 - Essential (primary) hypertension Plan to address problem: Management as per primary care.
[2018-09-10] MEDS: HumaLOG SUB-Q SCH ×2 (17:58→23:05)
[2018-09-10] MEDS: PULMICORT IH SCH (19:30)
[2018-09-10] MEDS: LOVENOX SUB-Q SCH (21:09)
[2018-09-10] MEDS: SODIUM CHLORIDE FLUSH SYRINGE 10 ML IV PRN (22:45)
[2018-09-11] MEDS: PROVENTIL IH PRN (00:29)
[2018-09-11] MEDS: SOLU-Medrol IV SCH ×3 (06:59→21:17)
[2018-09-11] MEDS: SODIUM CHLORIDE FLUSH SYRINGE 10 ML IV PRN (06:59)
[2018-09-11] MEDS: DUONEB *Not for PRN Use IH SCH ×4 (08:02→20:43)
[2018-09-11] MEDS: PULMICORT IH SCH ×2 (08:02→20:43)
[2018-09-11] MEDS: HumaLOG SUB-Q SCH ×4 (08:02→22:17)
[2018-09-11] MEDS: NEURONTIN PO SCH ×3 (09:37→21:18)
[2018-09-11] MEDS: PROTONIX PO SCH (09:37)
[2018-09-11] MEDS: LASIX PO SCH (09:37)
[2018-09-11] MEDS: PLAVIX PO SCH (09:37)
[2018-09-11] MEDS: CLARITIN PO SCH (09:37)
[2018-09-11] MEDS: LaMICtal PO SCH ×2 (09:38→21:17)
[2018-09-11] MEDS: PERCOCET 5/325 PO PRN ×2 (09:45→21:18)
[2018-09-11] MEDS: SODIUM CHLORIDE FLUSH SYRINGE 10 ML IV SCH ×2 (09:46→21:36)
--- NOTE | 2018-09-11 12:16 | Progress Note ---
Assessment and Plan Assessment and plan: 53-year-old white female with history of tobacco abuse, Bipolar disorder, PAD s/p right common femoral artery bypass followed by endarterectomy, morbid obesity (bmi 66.6) , COPD, vitamin D deficiency, coronary artery disease, congestive heart failure, hypertension, depression and peripheral neuropathy who presentsed to [facility] ED on 09/09 with sob and cough. She was admitted for respiratory failure due to acute exacerbation COPD as pO2 was on 67 on 2 liters O2. Acute Hypoxic Respiratory failure Initial CXR on 09/09 did not reveal any acute cardiopulmonary abnormalities Repeat CXR this a.m.- preliminary review unremarkable when compared to previous CXR Denies home oxygen use Currently on 2 L nasal cannula; continue to wean oxygen as tolerated Acute exacerbation COPD Continue Albuterol/atrovent nebulizer treatments q 6 hours. Continue I/V solumedrol 60mg q 8hr Continue ceftrioxone Completed Zithromax last dose 09/10 Start Tessalon Perles Pulmonary following and managing Tobacco abuse/ dependency Continue to encourage cessation History of Hypertension Controlled- not currently on any antihypertensive medication Continue to monitor BP History of peripheral neuropathy Continue gabapentin 300 mg 3 times a day Hyperglycemia- likely secondary to systemic steroids Continue POC BG monitoring On sliding scale coverage History of GERD Continue Protonix History of CHF Continue Lasix 40 mg by mouth daily On Plavix History of depression [id number] On Lovenox History Interval history: Patient is seen today on the medical floor. She feels as if her symptoms are not improving. There were no acute events Hospitalist Physical - Constitutional Vitals: Temp Pulse Resp BP Pulse Ox 98.1 F 96 H 20 110/53 95 09/10/18 17:58 09/11/18 08:24 09/11/18 08:24 09/10/18 17:58 09/11/18 08:02 General appearance: Present: no acute distress - EENT Eyes: Present: PERRL, EOM intact ENT: hearing intact, clear oral mucosa, dentition normal - Neck Neck: Present: supple, normal ROM - Respiratory Respiratory effort: labored Respiratory: bilateral: wheezing (L>R) - Cardiovascular Heart rate: 96 (bpm) Rhythm: regular Heart Sounds: Present: S1 & S2. Absent: rub, click - Extremities Extremities: pulses intact, pulses symmetrical, No edema Peripheral Pulses: within normal limits - Abdominal General gastrointestinal: soft, non-tender, normal bowel sounds, other (obese) - Integumentary Integumentary: Present: warm, dry - Psychiatric Psychiatric: appropriate mood/affect, cooperative - Neurologic Neurologic: CNII-XII intact, moves all extremities - Allied Health Allied health notes reviewed: nursing, RT Results - Labs CBC & Chem 7: 09/10/18 06:51 09/10/18 06:51 Labs: Laboratory Last Values WBC 6.7 K/mm3 (4.5-11.0) 09/10/18 06:51 RBC 4.01 M/mm3 (3.65-5.03) 09/10/18 06:51 Hgb 12.9 gm/dl (10.1-14.3) 09/10/18 06:51 Hct 38.0 % (30.3-42.9) 09/10/18 06:51 MCV 95 fl (79-97) 09/10/18 06:51 MCH 32 pg (28-32) 09/10/18 06:51 MCHC 34 % (30-34) 09/10/18 06:51 RDW 13.5 % (13.2-15.2) 09/10/18 06:51 Plt Count 180 K/mm3 (140-440) 09/10/18 06:51 Lymph % (Auto) 25.1 % (13.4-35.0) 09/09/18 16:09 [place] % (Auto) Financial Services Intern 09/10/18 06:51 Eos % (Auto) 2.5 % (0.0-4.3) 09/09/18 16:09 Baso % (Auto) 0.4 % (0.0-1.8) 09/09/18 16:09 Lymph # 2.3 K/mm3 (1.2-5.4) 09/09/18 16:09 [place] # 0.5 K/mm3 (0.0-0.8) 09/09/18 16:09 Eos # 0.2 K/mm3 (0.0-0.4) 09/09/18 16:09 Baso # 0.0 K/mm3 (0.0-0.1) 09/09/18 16:09 Add Manual Diff Complete 09/10/18 06:51 Total Counted 100 09/10/18 06:51 Seg Neutrophils % Financial Services Intern 09/10/18 06:51 Seg Neuts % (Manual) 97.0 % (40.0-70.0) H 09/10/18 06:51 Band Neutrophils % 0 % 09/10/18 06:51 Lymphocytes % (Manual) 2.0 % (13.4-35.0) L 09/10/18 06:51 Reactive Lymphs % (Man) 0 % 09/10/18 06:51 Monocytes % (Manual) 1.0 % (0.0-7.3) 09/10/18 06:51 Eosinophils % (Manual) 0 % (0.0-4.3) 09/10/18 06:51 Basophils % (Manual) 0 % (0.0-1.8) 09/10/18 06:51 Metamyelocytes % 0 % 09/10/18 06:51 Myelocytes % 0 % 09/10/18 06:51 Promyelocytes % 0 % 09/10/18 06:51 Blast Cells % 0 % 09/10/18 06:51 Nucleated RBC % Not Reportable 09/10/18 06:51 Seg Neutrophils # Financial Services Intern 09/10/18 06:51 Seg Neutrophils # Man 6.5 K/mm3 (1.8-7.7) 09/10/18 06:51 Band Neutrophils # 0.0 K/mm3 09/10/18 06:51 Lymphocytes # (Manual) 0.1 K/mm3 (1.2-5.4) L 09/10/18 06:51 Abs React Lymphs (Man) 0.0 K/mm3 09/10/18 06:51 Monocytes # (Manual) 0.1 K/mm3 (0.0-0.8) 09/10/18 06:51 Eosinophils # (Manual) 0.0 K/mm3 (0.0-0.4) 09/10/18 06:51 Basophils # (Manual) 0.0 K/mm3 (0.0-0.1) 09/10/18 06:51 Metamyelocytes # 0.0 K/mm3 09/10/18 06:51 Myelocytes # 0.0 K/mm3 09/10/18 06:51 Promyelocytes # 0.0 K/mm3 09/10/18 06:51 Blast Cells # 0.0 K/mm3 09/10/18 06:51 WBC Morphology Not Reportable 09/10/18 06:51 Hypersegmented Neuts Not Reportable 09/10/18 06:51 Hyposegmented Neuts Not Reportable 09/10/18 06:51 Hypogranular Neuts Not Reportable 09/10/18 06:51 Smudge Cells Not Reportable 09/10/18 06:51 Toxic Granulation Not Reportable 09/10/18 06:51 Toxic Vacuolation Not Reportable 09/10/18 06:51 Dohle Bodies Not Reportable 09/10/18 06:51 Pelger-Huet Anomaly Not Reportable 09/10/18 06:51 Josh Rods Not Reportable 09/10/18 06:51 Platelet Estimate Consistent w auto 09/10/18 06:51 Clumped Platelets Not Reportable 09/10/18 06:51 Plt Clumps, EDTA Not Reportable 09/10/18 06:51 Large Platelets Not Reportable 09/10/18 06:51 Giant Platelets Not Reportable 09/10/18 06:51 Platelet Satelliting Not Reportable 09/10/18 06:51 Plt Morphology Comment Not Reportable 09/10/18 06:51 RBC Morphology Normal 09/10/18 06:51 Dimorphic RBCs Not Reportable 09/10/18 06:51 Polychromasia Not Reportable 09/10/18 06:51 Hypochromasia Not Reportable 09/10/18 06:51 Poikilocytosis Not Reportable 09/10/18 06:51 Anisocytosis Not Reportable 09/10/18 06:51 Microcytosis Not Reportable 09/10/18 06:51 Macrocytosis Not Reportable 09/10/18 06:51 Spherocytes Not Reportable 09/10/18 06:51 Pappenheimer Bodies Not Reportable 09/10/18 06:51 Sickle Cells Not Reportable 09/10/18 06:51 Target Cells Not Reportable 09/10/18 06:51 Tear Drop Cells Not Reportable 09/10/18 06:51 Ovalocytes Not Reportable 09/10/18 06:51 Helmet Cells Not Reportable 09/10/18 06:51 [place] Bodies Not Reportable 09/10/18 06:51 [place] Rings Not Reportable 09/10/18 06:51 [place] Cells Not Reportable 09/10/18 06:51 Bite Cells Not Reportable 09/10/18 06:51 Crenated Cell Not Reportable 09/10/18 06:51 Elliptocytes Not Reportable 09/10/18 06:51 Acanthocytes (Spur) Not Reportable 09/10/18 06:51 Rouleaux Not Reportable 09/10/18 06:51 Hemoglobin C Crystals Not Reportable 09/10/18 06:51 Schistocytes Not Reportable 09/10/18 06:51 Malaria parasites Not Reportable 09/10/18 06:51 [place] Bodies Not Reportable 09/10/18 06:51 Hem Pathologist Commnt No 09/10/18 06:51 POC ABG pH 7.347 (7.35-7.45) L 09/09/18 23:23 POC ABG pCO2 39.6 (35-45) 09/09/18 23:23 POC ABG pO2 67 (80-105) L 09/09/18 23:23 POC ABG HCO3 21.7 (22-26 mml/L) 09/09/18 23:23 POC ABG Total CO2 23 (23-27mmol/L) 09/09/18 23:23 POC ABG O2 Sat 92 09/09/18 23:23 POC ABG Base Excess -4 ((-2) - (+3)mmol/L) 09/09/18 23:23 FiO2 28 % 09/09/18 23:23 Sodium 141 mmol/L (137-145) 09/10/18 06:51 Potassium 4.4 mmol/L (3.6-5.0) 09/10/18 06:51 Chloride 106.7 mmol/L (98-107) 09/10/18 06:51 Carbon Dioxide 22 mmol/L (22-30) 09/10/18 06:51 Anion Gap 17 mmol/L 09/10/18 06:51 BUN 13 mg/dL (7-17) 09/10/18 06:51 Creatinine 0.5 mg/dL (0.7-1.2) L 09/10/18 06:51 Estimated GFR > 60 ml/min 09/10/18 06:51 BUN/Creatinine Ratio 26 % 09/10/18 06:51 Glucose 140 mg/dL (65-100) H 09/10/18 06:51 POC Glucose 128 (70-105) H 09/11/18 11:33 Hemoglobin A1c 5.8 % (4-6) 09/09/18 16:09 Calcium 8.5 mg/dL (8.4-10.2) 09/10/18 06:51 Total Bilirubin 0.20 mg/dL (0.1-1.2) 09/10/18 06:51 AST 11 units/L (5-40) 09/10/18 06:51 ALT 9 units/L (7-56) 09/10/18 06:51 Alkaline Phosphatase 82 units/L (35-129) 09/10/18 06:51 Total Protein 6.8 g/dL (6.3-8.2) 09/10/18 06:51 Albumin 3.8 g/dL (3.9-5) L 09/10/18 06:51 Albumin/Globulin Ratio 1.3 % 09/10/18 06:51 Active Medications - Current Medications Current Medications: Generic Name Dose Route Start Last Admin Trade Name Freq PRN Reason Stop Dose Admin Acetaminophen 650 mg 09/09/18 21:37 09/10/18 14:44 Tylenol PO 650 mg Q4H PRN Administration Pain MILD(1-3)/Fever >100.5/[place] Albuterol 2.5 mg 09/09/18 21:40 09/11/18 00:29 Proventil IH 2.5 mg Q4HRT PRN Administration Shortness Of Breath Albuterol/Ipratropium 1 ampul 09/10/18 08:00 09/11/18 08:02 Duoneb *Not For Prn Use* IH 1 ampul QIDRT BISHOP Administration Azithromycin 500 mg 09/11/18 22:00 Zithromax PO 09/13/18 22:01 QHS BISHOP Benzonatate 100 mg 09/11/18 14:00 Tessalon Perles PO Q8HR BISHOP Budesonide 0.5 mg 09/10/18 16:36 09/11/18 08:02 Pulmicort IH 0.5 mg Q12HRT BISHOP Administration Clopidogrel Bisulfate 75 mg 09/09/18 22:00 09/11/18 09:37 Plavix PO 75 mg DAILY BISHOP Administration Dextrose 50 ml 09/10/18 13:28 D50w (25gm) Syringe IV PRN PRN Hypoglycemia Enoxaparin Sodium 40 mg 09/10/18 22:00 09/10/18 21:09 Lovenox SUB-Q 40 mg QDAY@2200 BISHOP Administration Ergocalciferol 50,000 unit 09/13/18 10:00 Vitamin D2 PO Th BISHOP Furosemide 40 mg 09/09/18 22:00 09/11/18 09:37 Lasix PO 40 mg DAILY BISHOP Administration Gabapentin 300 mg 09/10/18 08:00 09/11/18 09:37 Neurontin PO 300 mg TID [facility] Administration Hydromorphone HCl 0.5 mg 09/09/18 21:38 Dilaudid IV Q3H PRN Pain , Severe (7-10) Ceftriaxone Sodium 2 gm in 100 mls @ 200 mls/hr 09/09/18 22:00 09/10/18 22:42 Rocephin/Ns 2 Gm/100 Ml IV 200 mls/hr Q24HR@2200 BISHOP Administration Protocol Insulin Human Lispro 0 unit 09/10/18 16:30 09/11/18 11:44 Humalog SUB-Q Not Given ACHS [facility] Protocol Lamotrigine 150 mg 09/09/18 22:00 09/11/18 09:38 Lamictal PO 150 mg BID BISHOP Administration Loratadine 10 mg 09/09/18 22:00 09/11/18 09:37 Claritin PO 10 mg DAILY [facility] Administration Methylprednisolone Sodium Succinate 60 mg 09/09/18 22:00 09/11/18 06:59 Solu-Medrol IV 60 mg Q8HR BISHOP Administration Ondansetron HCl 4 mg 09/09/18 21:37 Zofran IV Q8H PRN Nausea And Vomiting Oxycodone/Acetaminophen 1 tab 09/09/18 21:38 09/11/18 09:45 Percocet 5/325 PO 1 tab Q6H PRN Administration Pain, Moderate (4-6) Pantoprazole Sodium 40 mg 09/09/18 22:00 09/11/18 09:37 Protonix PO 40 mg QDAY BISHOP Administration Sodium Chloride 10 ml 09/09/18 22:00 09/11/18 09:46 Sodium Chloride Flush Syringe 10 Ml IV 10 ml BID BISHOP Administration Sodium Chloride 10 ml 09/09/18 21:37 09/11/18 06:59 Sodium Chloride Flush Syringe 10 Ml IV 10 ml PRN PRN Administration LINE FLUSH
--- NOTE | 2018-09-11 13:52 | XRay Report ---
ROUTINE CHEST, TWO VIEWS: HISTORY: Suspected pneumonia. The trachea, heart, mediastinal contour, lung rosado and bony thorax are unremarkable. No change since 09/09/18. IMPRESSION: Unremarkable chest x-ray.
--- NOTE | 2018-09-11 14:31 | Progress Note ---
Assessment and Plan Patient awake. Resting on 2 litres O2. No acute respiratory distress.O2 saturation 96% on 2 litres O2. Patient breathing much better than when she is admitted. - Patient Problems (1) Acute respiratory failure Current Visit: Yes Status: Acute Qualifiers: Respiratory failure complication: hypoxia Qualified Code(s): J96.01 - Acute respiratory failure with hypoxia Plan to address problem: O2 2 litres via nasal canula. Albuterol/atrovent aerosol treatments q 6 hours. Continue I/V solumedrol. Continue Zithromax and ceftrioxone. Continue S/C Lovenox. Continue Protonix. (2) COPD exacerbation Current Visit: Yes Status: Acute Plan to address problem: O2 2 litres via nasal canula. Albuterol/atrovent aerosol treatments q 6 hours. Continue I/V solumedrol. Continue Zithromax and ceftrioxone. Continue S/C Lovenox. Continue Protonix. (3) Coronary artery disease Current Visit: Yes Status: Chronic Qualifiers: Coronary Disease-Associated Artery/Lesion type: [place] artery [place] vs. transplanted heart: [place] heart Plan to address problem: Management as per cardiology. (4) GERD (gastroesophageal reflux disease) Current Visit: Yes Status: Chronic Qualifiers: Esophagitis presence: with esophagitis Qualified Code(s): K21.0 - Gastro- esophageal reflux disease with esophagitis Plan to address problem: Continue Protonix. (5) Hypertension Current Visit: Yes Status: Chronic Qualifiers: Hypertension type: essential hypertension Qualified Code(s): I10 - Essential (primary) hypertension Plan to address problem: Management as per primary care. Subjective Date of service: 09/11/18 Interval history: Patient awake. Resting on 2 litres O2. No acute respiratory distress.O2 saturation 96% on 2 litres O2. Patient breathing much better than when she is admitted. Objective Vital Signs - 12hr 09/11/18 09/11/18 09/11/18 06:12 08:02 08:24 Temperature 97.7 F Pulse Rate 67 Pulse Rate [ 72 96 H Anterior Bilateral Throughout] Respiratory 16 Rate Respiratory 23 20 Rate [Anterior Bilateral Throughout] Blood Pressure 92/48 O2 Sat by Pulse 98 95 Oximetry 09/11/18 09/11/18 09/11/18 12:13 13:16 13:30 Temperature 97.9 F Pulse Rate 93 H Pulse Rate [ 93 H 102 H Anterior Bilateral Throughout] Respiratory 20 Rate Respiratory 20 20 Rate [Anterior Bilateral Throughout] Blood Pressure 128/53 O2 Sat by Pulse 96 Oximetry Constitutional: no acute distress, alert Eyes: non-icteric ENT: oropharynx moist Neck: supple, no JVD Ascultation: Bilateral: diminished breath sounds Cardiovascular: regular rate and rhythm Gastrointestinal: normoactive bowel sounds, soft, non-tender Integumentary: normal Extremities: no cyanosis, no edema Neurologic: normal mental status, non-focal exam, pupils equal and round, CN II- XII normal Psychiatric: mood appropriate CBC and BMP: 09/10/18 06:51 09/10/18 06:51 ABG, PT/INR, D-dimer: ABG POC ABG pH 7.347 (7.35-7.45) L 09/09/18 23:23 POC ABG pCO2 39.6 (35-45) 09/09/18 23:23 POC ABG pO2 67 (80-105) L 09/09/18 23:23 POC ABG HCO3 21.7 (22-26 mml/L) 09/09/18 23:23 POC ABG Total CO2 23 (23-27mmol/L) 09/09/18 23:23 POC ABG O2 Sat 92 09/09/18 23:23 Abnormal lab findings: Abnormal Labs 09/09/18 09/09/18 09/10/18 16:06 23:23 06:51 Seg Neuts % (Manual) 97.0 H Lymphocytes % (Manual) 2.0 L Lymphocytes # (Manual) 0.1 L POC ABG pH 7.347 L POC ABG pO2 67 L Creatinine 0.5 L Glucose POC Glucose Albumin 09/10/18 09/10/18 09/10/18 06:51 13:17 17:28 Seg Neuts % (Manual) Lymphocytes % (Manual) Lymphocytes # (Manual) POC ABG pH POC ABG pO2 Creatinine 0.5 L Glucose 140 H POC Glucose 317 H 165 H Albumin 3.8 L 09/10/18 09/11/18 09/11/18 22:35 07:49 11:33 Seg Neuts % (Manual) Lymphocytes % (Manual) Lymphocytes # (Manual) POC ABG pH POC ABG pO2 Creatinine Glucose POC Glucose 189 H 111 H 128 H Albumin Chest x-ray: report reviewed (Reported unremarkable chest xray.), image reviewed
[2018-09-11] MEDS: TESSALON PERLES PO SCH ×2 (14:37→21:17)
[2018-09-11] MEDS: LOVENOX SUB-Q SCH (21:17)
[2018-09-11] MEDS: ROCEPHIN/NS 2 GM/100 ML 2 GM/100 ML BAG IV SCH (21:18)
[2018-09-11] MEDS ORDERED: SENOKOT S PO PRN (21:35)
[2018-09-11] MEDS ORDERED: ZITHROMAX PO SCH (22:00)
[2018-09-12] MEDS: PROVENTIL IH PRN (02:52)
[2018-09-12] MEDS: PERCOCET 5/325 PO PRN (03:04)
[2018-09-12] MEDS: TESSALON PERLES PO SCH ×2 (05:27→13:39)
[2018-09-12] MEDS: SOLU-Medrol IV SCH (05:27)
[2018-09-12] MEDS: PULMICORT IH SCH (08:35)
[2018-09-12] MEDS: DUONEB *Not for PRN Use IH SCH ×3 (08:36→16:39)
[2018-09-12] MEDS: HumaLOG SUB-Q SCH ×2 (08:56→11:30)
[2018-09-12] MEDS: NEURONTIN PO SCH ×2 (08:56→13:39)
--- NOTE | 2018-09-12 10:31 | Progress Note ---
Assessment and Plan Assessment and plan: 53-year-old white female with history of tobacco abuse, Bipolar disorder, PAD s/p right common femoral artery bypass followed by endarterectomy, morbid obesity (bmi 66.6) , COPD, vitamin D deficiency, coronary artery disease, congestive heart failure, hypertension, depression and peripheral neuropathy who presentsed to [facility] ED on 09/09 with sob and cough. She was admitted for respiratory failure due to acute exacerbation COPD as pO2 was on 67 on 2 liters O2. Acute Hypoxic Respiratory failure Initial CXR on 09/09 did not reveal any acute cardiopulmonary abnormalities Repeat CXR on 09/10 was unremarkable when compared to previous CXR Denies home oxygen use Currently on 2 L nasal cannula; continue to wean oxygen as tolerated Acute exacerbation COPD Continue Albuterol/atrovent nebulizer treatments q 6 hours. Changed to IV Solu-Medrol 40 mg twice a day Discontinue ceftrioxone On Zithromax last dose 09/13 Continue Tessalon Perles Pulmonary following and managing Tobacco abuse/ dependency Continue to encourage cessation History of Hypertension Controlled- not currently on any antihypertensive medication Continue to monitor BP History of peripheral neuropathy Continue gabapentin 300 mg 3 times a day Hyperglycemia- likely secondary to systemic steroids Continue POC BG monitoring On sliding scale coverage History of GERD Continue Protonix History of CHF Continue Lasix 40 mg by mouth daily On Plavix History of depression [id number] On Lovenox History Interval history: Patient is seen today on the medical floor. There were no acute events Hospitalist Physical - Physical exam Narrative exam: EENT Eyes: Present: PERRL, EOM intact ENT: hearing intact, clear oral mucosa, dentition normal - Neck Neck: Present: supple, normal ROM - Respiratory Respiratory effort: labored Respiratory: bilateral: wheezing (L>R) - Cardiovascular Heart rate: 69 (bpm) Rhythm: regular Heart Sounds: Present: S1 & S2. Absent: rub, click - Extremities Extremities: pulses intact, pulses symmetrical, No edema Peripheral Pulses: within normal limits - Abdominal General gastrointestinal: soft, non-tender, normal bowel sounds, other (obese) - Integumentary Integumentary: Present: warm, dry - Psychiatric Psychiatric: appropriate mood/affect, cooperative - Neurologic Neurologic: CNII-XII intact, moves all extremities - Constitutional Vitals: Temp Pulse Resp BP Pulse Ox 97.7 F 76 18 111/53 98 09/12/18 06:05 09/12/18 08:49 09/12/18 08:49 09/12/18 06:05 09/12/18 10:00 General appearance: Present: no acute distress Results - Labs CBC & Chem 7: 09/10/18 06:51 09/10/18 06:51 Labs: Laboratory Last Values WBC 6.7 K/mm3 (4.5-11.0) 09/10/18 06:51 RBC 4.01 M/mm3 (3.65-5.03) 09/10/18 06:51 Hgb 12.9 gm/dl (10.1-14.3) 09/10/18 06:51 Hct 38.0 % (30.3-42.9) 09/10/18 06:51 MCV 95 fl (79-97) 09/10/18 06:51 MCH 32 pg (28-32) 09/10/18 06:51 MCHC 34 % (30-34) 09/10/18 06:51 RDW 13.5 % (13.2-15.2) 09/10/18 06:51 Plt Count 180 K/mm3 (140-440) 09/10/18 06:51 Lymph % (Auto) 25.1 % (13.4-35.0) 09/09/18 16:09 [place] % (Auto) Manager Medical Writing 09/10/18 06:51 Eos % (Auto) 2.5 % (0.0-4.3) 09/09/18 16:09 Baso % (Auto) 0.4 % (0.0-1.8) 09/09/18 16:09 Lymph # 2.3 K/mm3 (1.2-5.4) 09/09/18 16:09 [place] # 0.5 K/mm3 (0.0-0.8) 09/09/18 16:09 Eos # 0.2 K/mm3 (0.0-0.4) 09/09/18 16:09 Baso # 0.0 K/mm3 (0.0-0.1) 09/09/18 16:09 Add Manual Diff Complete 09/10/18 06:51 Total Counted 100 09/10/18 06:51 Seg Neutrophils % Manager Medical Writing 09/10/18 06:51 Seg Neuts % (Manual) 97.0 % (40.0-70.0) H 09/10/18 06:51 Band Neutrophils % 0 % 09/10/18 06:51 Lymphocytes % (Manual) 2.0 % (13.4-35.0) L 09/10/18 06:51 Reactive Lymphs % (Man) 0 % 09/10/18 06:51 Monocytes % (Manual) 1.0 % (0.0-7.3) 09/10/18 06:51 Eosinophils % (Manual) 0 % (0.0-4.3) 09/10/18 06:51 Basophils % (Manual) 0 % (0.0-1.8) 09/10/18 06:51 Metamyelocytes % 0 % 09/10/18 06:51 Myelocytes % 0 % 09/10/18 06:51 Promyelocytes % 0 % 09/10/18 06:51 Blast Cells % 0 % 09/10/18 06:51 Nucleated RBC % Not Reportable 09/10/18 06:51 Seg Neutrophils # Manager Medical Writing 09/10/18 06:51 Seg Neutrophils # Man 6.5 K/mm3 (1.8-7.7) 09/10/18 06:51 Band Neutrophils # 0.0 K/mm3 09/10/18 06:51 Lymphocytes # (Manual) 0.1 K/mm3 (1.2-5.4) L 09/10/18 06:51 Abs React Lymphs (Man) 0.0 K/mm3 09/10/18 06:51 Monocytes # (Manual) 0.1 K/mm3 (0.0-0.8) 09/10/18 06:51 Eosinophils # (Manual) 0.0 K/mm3 (0.0-0.4) 09/10/18 06:51 Basophils # (Manual) 0.0 K/mm3 (0.0-0.1) 09/10/18 06:51 Metamyelocytes # 0.0 K/mm3 09/10/18 06:51 Myelocytes # 0.0 K/mm3 09/10/18 06:51 Promyelocytes # 0.0 K/mm3 09/10/18 06:51 Blast Cells # 0.0 K/mm3 09/10/18 06:51 WBC Morphology Not Reportable 09/10/18 06:51 Hypersegmented Neuts Not Reportable 09/10/18 06:51 Hyposegmented Neuts Not Reportable 09/10/18 06:51 Hypogranular Neuts Not Reportable 09/10/18 06:51 Smudge Cells Not Reportable 09/10/18 06:51 Toxic Granulation Not Reportable 09/10/18 06:51 Toxic Vacuolation Not Reportable 09/10/18 06:51 Dohle Bodies Not Reportable 09/10/18 06:51 Pelger-Huet Anomaly Not Reportable 09/10/18 06:51 Josh Rods Not Reportable 09/10/18 06:51 Platelet Estimate Consistent w auto 09/10/18 06:51 Clumped Platelets Not Reportable 09/10/18 06:51 Plt Clumps, EDTA Not Reportable 09/10/18 06:51 Large Platelets Not Reportable 09/10/18 06:51 Giant Platelets Not Reportable 09/10/18 06:51 Platelet Satelliting Not Reportable 09/10/18 06:51 Plt Morphology Comment Not Reportable 09/10/18 06:51 RBC Morphology Normal 09/10/18 06:51 Dimorphic RBCs Not Reportable 09/10/18 06:51 Polychromasia Not Reportable 09/10/18 06:51 Hypochromasia Not Reportable 09/10/18 06:51 Poikilocytosis Not Reportable 09/10/18 06:51 Anisocytosis Not Reportable 09/10/18 06:51 Microcytosis Not Reportable 09/10/18 06:51 Macrocytosis Not Reportable 09/10/18 06:51 Spherocytes Not Reportable 09/10/18 06:51 Pappenheimer Bodies Not Reportable 09/10/18 06:51 Sickle Cells Not Reportable 09/10/18 06:51 Target Cells Not Reportable 09/10/18 06:51 Tear Drop Cells Not Reportable 09/10/18 06:51 Ovalocytes Not Reportable 09/10/18 06:51 Helmet Cells Not Reportable 09/10/18 06:51 Dunlap-Phelan Bodies Not Reportable 09/10/18 06:51 [place] Rings Not Reportable 09/10/18 06:51 [place] Cells Not Reportable 09/10/18 06:51 Bite Cells Not Reportable 09/10/18 06:51 Crenated Cell Not Reportable 09/10/18 06:51 Elliptocytes Not Reportable 09/10/18 06:51 Acanthocytes (Spur) Not Reportable 09/10/18 06:51 Rouleaux Not Reportable 09/10/18 06:51 Hemoglobin C Crystals Not Reportable 09/10/18 06:51 Schistocytes Not Reportable 09/10/18 06:51 Malaria parasites Not Reportable 09/10/18 06:51 [place] Bodies Not Reportable 09/10/18 06:51 Hem Pathologist Commnt No 09/10/18 06:51 POC ABG pH 7.347 (7.35-7.45) L 09/09/18 23:23 POC ABG pCO2 39.6 (35-45) 09/09/18 23:23 POC ABG pO2 67 (80-105) L 09/09/18 23:23 POC ABG HCO3 21.7 (22-26 mml/L) 09/09/18 23:23 POC ABG Total CO2 23 (23-27mmol/L) 09/09/18 23:23 POC ABG O2 Sat 92 09/09/18 23:23 POC ABG Base Excess -4 ((-2) - (+3)mmol/L) 09/09/18 23:23 FiO2 28 % 09/09/18 23:23 Sodium 141 mmol/L (137-145) 09/10/18 06:51 Potassium 4.4 mmol/L (3.6-5.0) 09/10/18 06:51 Chloride 106.7 mmol/L (98-107) 09/10/18 06:51 Carbon Dioxide 22 mmol/L (22-30) 09/10/18 06:51 Anion Gap 17 mmol/L 09/10/18 06:51 BUN 13 mg/dL (7-17) 09/10/18 06:51 Creatinine 0.5 mg/dL (0.7-1.2) L 09/10/18 06:51 Estimated GFR > 60 ml/min 09/10/18 06:51 BUN/Creatinine Ratio 26 % 09/10/18 06:51 Glucose 140 mg/dL (65-100) H 09/10/18 06:51 POC Glucose 109 (70-105) H 09/12/18 08:06 Hemoglobin A1c 5.8 % (4-6) 09/09/18 16:09 Calcium 8.5 mg/dL (8.4-10.2) 09/10/18 06:51 Total Bilirubin 0.20 mg/dL (0.1-1.2) 09/10/18 06:51 AST 11 units/L (5-40) 09/10/18 06:51 ALT 9 units/L (7-56) 09/10/18 06:51 Alkaline Phosphatase 82 units/L (35-129) 09/10/18 06:51 Total Protein 6.8 g/dL (6.3-8.2) 09/10/18 06:51 Albumin 3.8 g/dL (3.9-5) L 09/10/18 06:51 Albumin/Globulin Ratio 1.3 % 09/10/18 06:51 Active Medications - Current Medications Current Medications: Generic Name Dose Route Start Last Admin Trade Name Freq PRN Reason Stop Dose Admin Acetaminophen 650 mg 09/09/18 21:37 09/10/18 14:44 Tylenol PO 650 mg Q4H PRN Administration Pain MILD(1-3)/Fever >100.5/PARKINSON Albuterol 2.5 mg 09/09/18 21:40 09/12/18 02:52 Proventil IH 2.5 mg Q4HRT PRN Administration Shortness Of Breath Albuterol/Ipratropium 1 ampul 09/10/18 08:00 09/12/18 08:36 Duoneb *Not For Prn Use* IH Not Given QIDRT BISHOP Azithromycin 500 mg 09/11/18 22:00 09/11/18 21:17 Zithromax PO 09/13/18 22:01 500 mg QHS BISHOP Administration Benzonatate 100 mg 09/11/18 14:00 09/12/18 05:27 Tessalon Perles PO 100 mg Q8HR BISHOP Administration Budesonide 0.5 mg 09/10/18 16:36 09/12/18 08:35 Pulmicort IH 0.5 mg Q12HRT BISHOP Administration Clopidogrel Bisulfate 75 mg 09/09/18 22:00 09/11/18 09:37 Plavix PO 75 mg DAILY BISHOP Administration Dextrose 50 ml 09/10/18 13:28 D50w (25gm) Syringe IV PRN PRN Hypoglycemia Enoxaparin Sodium 40 mg 09/10/18 22:00 09/11/18 21:17 Lovenox SUB-Q 40 mg QDAY@2200 BISHOP Administration Ergocalciferol 50,000 unit 09/13/18 10:00 Vitamin D2 PO Th BISHOP Furosemide 40 mg 09/09/18 22:00 09/11/18 09:37 Lasix PO 40 mg DAILY BISHOP Administration Gabapentin 300 mg 09/10/18 08:00 09/12/18 08:56 Neurontin PO 300 mg TID [facility] Administration Hydromorphone HCl 0.5 mg 09/09/18 21:38 Dilaudid IV Q3H PRN Pain , Severe (7-10) Ceftriaxone Sodium 2 gm in 100 mls @ 200 mls/hr 09/09/18 22:00 09/11/18 21:18 Rocephin/Ns 2 Gm/100 Ml IV 200 mls/hr Q24HR@2200 BISHOP Administration Protocol Insulin Human Lispro 0 unit 09/10/18 16:30 09/12/18 08:56 Humalog SUB-Q Not Given ACHS [facility] Protocol Lamotrigine 150 mg 09/09/18 22:00 09/11/18 21:17 Lamictal PO 150 mg BID BISHOP Administration Loratadine 10 mg 09/09/18 22:00 09/11/18 09:37 Claritin PO 10 mg DAILY [facility] Administration Methylprednisolone Sodium Succinate 60 mg 09/09/18 22:00 09/12/18 05:27 Solu-Medrol IV 60 mg Q8HR BISHOP Administration Ondansetron HCl 4 mg 09/09/18 21:37 Zofran IV Q8H PRN Nausea And Vomiting Oxycodone/Acetaminophen 1 tab 09/09/18 21:38 09/12/18 03:04 Percocet 5/325 PO 1 tab Q6H PRN Administration Pain, Moderate (4-6) Pantoprazole Sodium 40 mg 09/09/18 22:00 09/11/18 09:37 Protonix PO 40 mg QDAY BISHOP Administration Senna/Docusate Sodium 2 tab 09/11/18 21:35 09/11/18 22:15 Senokot S PO 2 tab QHS PRN Administration Laxative Effect Sodium Chloride 10 ml 09/09/18 22:00 09/11/18 21:36 Sodium Chloride Flush Syringe 10 Ml IV 10 ml BID BISHOP Administration Sodium Chloride 10 ml 09/09/18 21:37 09/11/18 06:59 Sodium Chloride Flush Syringe 10 Ml IV 10 ml PRN PRN Administration LINE FLUSH
[2018-09-12] MEDS: LaMICtal PO SCH (10:45)
[2018-09-12] MEDS: CLARITIN PO SCH (10:46)
[2018-09-12] MEDS: LASIX PO SCH (10:46)
[2018-09-12] MEDS: PLAVIX PO SCH (10:46)
[2018-09-12] MEDS: PROTONIX PO SCH (10:46)
[2018-09-12] MEDS: SODIUM CHLORIDE FLUSH SYRINGE 10 ML IV SCH (10:47)
[2018-09-12 13:09] VITALS: BP 116/61
--- NOTE | 2018-09-12 13:35 | Discharge Summary ---
<TORREY VIERA - Last Filed: 09/12/18 13:35> Providers - Providers Date of Admission: 09/09/18 19:19 Date of discharge: 09/12/18 Attending physician: VIKAS XIE MD 09/09/18 21:38 Consult to Physician [CONS] Routine Comment: Consulting Provider: TOMMY RANDOLPH Physician Instructions: Reason For Exam: acute respiratory failure/COPD exacerbation Primary care physician: CURT STANLEY Hospitalization Reason for admission: acute exacerbation COPD Hospital course: 53-year-old white female with history of tobacco abuse, Bipolar disorder, PAD s/p right common femoral artery bypass followed by endarterectomy, morbid obesity (bmi 66.6) , COPD, vitamin D deficiency, coronary artery disease, congestive heart failure, hypertension, depression and peripheral neuropathy who presentsed to [facility] ED on 09/09 with sob and cough. She was admitted for respiratory failure due to acute exacerbation COPD as pO2 was on 67 on 2 liters O2. She was treated with supplemental oxygen, IV steroids, antibiotics, and nebulizer treatments to optimize pulmonary function. Diagnosis: Acute Hypoxic Respiratory failure Acute exacerbation COPD Tobacco abuse/ dependency History of Hypertension History of peripheral neuropathy Hyperglycemia- likely secondary to systemic steroids History of GERD History of CHF History of depression Disposition: [id number]/TX-06 HOME UNDER HOME TH Time spent for discharge: 33minutes Core Measure Documentation - Palliative Care Palliative Care/ Comfort Measures: Not Applicable - Core Measures Any of the following diagnoses?: none - VTE Discharge Requirements Deep Vein Thrombosis/Pulmonary Embolism Present on Admission: No Contraindication No Overlap Therapy order at DC: Not Indicated Exam - Physical Exam Narrative exam: EENT Eyes: Present: PERRL, EOM intact ENT: hearing intact, clear oral mucosa, dentition normal - Neck Neck: Present: supple, normal ROM - Respiratory Respiratory effort: non-labored Respiratory: bilateral: faint scattered wheezing (L>R) - Cardiovascular Heart rate: 69 (bpm) Rhythm: regular Heart Sounds: Present: S1 & S2. Absent: rub, click - Extremities Extremities: pulses intact, pulses symmetrical, No edema Peripheral Pulses: within normal limits - Abdominal General gastrointestinal: soft, non-tender, normal bowel sounds, other (obese) - Integumentary Integumentary: Present: warm, dry - Psychiatric Psychiatric: appropriate mood/affect, cooperative - Neurologic Neurologic: CNII-XII intact, moves all extremities - Constitutional Vitals: Temp Pulse Resp BP Pulse Ox 98.0 F 78 18 116/61 93 09/12/18 11:41 09/12/18 12:58 09/12/18 12:58 09/12/18 11:41 09/12/18 11:41 Plan Activity: advance as tolerated Diet: low fat, low salt Follow up with: CURT STANLEY MD [Primary Care Provider] - 3-5 Days TOMMY RANDOLPH MD [Staff Physician] - 14 Days Prescriptions: Azithromycin [Zithromax TAB] 500 mg PO QHS 2 Days #2 tablet Ipratropium [Atrovent NEB] 0.5 mg IH Q6H 30 Days nebu Prednisone [predniSONE 10 mg (6-Day Pack, 21 Tabs)] 10 mg PO .TAPER #1 tab.ds.pk ALBUTEROL NEB's [Proventil 0.083% NEBS] 2.5 mg IH Q4HRT PRN 30 Days nebu PRN Reason: Shortness Of Breath Benzonatate [Tessalon Perles] 100 mg PO Q8HR 30 Days #90 capsule Albuterol Sulfate [Ventolin Hfa] 2 puff IH Q6H PRN 30 Days hfa.aer.ad PRN Reason: Bronchospasm <VIKAS XIE - Last Filed: 09/15/18 19:52> Providers - Providers Date of Admission: 09/09/18 19:19 Attending physician: VIKAS XIE MD 09/09/18 21:38 Consult to Physician [CONS] Routine Comment: Consulting Provider: TOMMY RANDOLPH Physician Instructions: Reason For Exam: acute respiratory failure/COPD exacerbation Primary care physician: CURT STANLEY Hospitalization Hospital course: I saw and evaluated the patient. I agree with the findings and the plan of care as documented in the Nurse Practitioner's~note, with the following corrections and additions. 53 year old woman with a history of tobacco abuse, bipolar disorder, COPD who presented with shortness of breath cough and wheezing.she received oxygen, steroids and nebulizer. She was cool managed by pulmonology, serial X-rays were negative for pneumonia. The patient clinical improvement was subsequently discharged. Diagnosis acute hypoxic respiratory failure acute exacerbation of COPD Core Measure Documentation - Palliative Care Palliative Care/ Comfort Measures: Not Applicable - Core Measures Any of the following diagnoses?: none Exam - Constitutional Vitals: Temp Pulse Resp BP Pulse Ox 98.0 F 80 18 116/61 93 09/12/18 11:41 09/12/18 13:12 09/12/18 13:12 09/12/18 11:41 09/12/18 11:41 General appearance: Present: no acute distress, well-nourished - EENT Eyes: Present: PERRL ENT: hearing intact, clear oral mucosa - Neck Neck: Present: supple, normal ROM - Respiratory Respiratory effort: normal Respiratory: bilateral: CTA - Cardiovascular Heart Sounds: Present: S1 & S2. Absent: rub, click - Extremities Extremities: pulses symmetrical, No edema Peripheral Pulses: within normal limits - Abdominal General gastrointestinal: Present: soft, non-tender, non-distended, normal bowel sounds Female genitourinary: Present: normal - Integumentary Integumentary: Present: clear, warm, dry - Musculoskeletal Musculoskeletal: gait normal, strength equal bilaterally - Psychiatric Psychiatric: appropriate mood/affect, intact judgment & insight - Neurologic Neurologic: CNII-XII intact, moves all extremities
[2018-09-12] MEDS ORDERED: SOLU-Medrol IV SCH ×2 (18:00→22:00)
--- NOTE | 2018-09-12 19:42 | Progress Note ---
Assessment and Plan Patient awake. Resting on 2 litres O2. No acute respiratory distress.O2 saturation 93% on 2 litres O2. Patient breathing much better than when she is admitted. Wanted to go home. When patient discharged can come for pulmonary follow up as o ut patient in 1 or 2 weeks. - Patient Problems (1) Acute respiratory failure Status: Acute Qualifiers: Respiratory failure complication: hypoxia Qualified Code(s): J96.01 - Acute respiratory failure with hypoxia Plan to address problem: O2 2 litres via nasal canula. Albuterol/atrovent aerosol treatments q 6 hours. Continue I/V solumedrol. Continue Zithromax and ceftrioxone. Continue S/C Lovenox. Continue Protonix. (2) COPD exacerbation Status: Acute Plan to address problem: O2 2 litres via nasal canula. Albuterol/atrovent aerosol treatments q 6 hours. Continue I/V solumedrol. Continue Zithromax and ceftrioxone. Continue S/C Lovenox. Continue Protonix. (3) Coronary artery disease Status: Chronic Qualifiers: Coronary Disease-Associated Artery/Lesion type: eek artery [place] vs. transplanted heart: eek heart Plan to address problem: Management as per cardiology. (4) GERD (gastroesophageal reflux disease) Status: Chronic Qualifiers: Esophagitis presence: with esophagitis Qualified Code(s): K21.0 - Gastro- esophageal reflux disease with esophagitis Plan to address problem: Continue Protonix. (5) Hypertension Status: Chronic Qualifiers: Hypertension type: essential hypertension Qualified Code(s): I10 - Essenti al (primary) hypertension Plan to address problem: Management as per primary care. Subjective Date of service: 09/12/18 Interval history: Patient awake. Resting on 2 litres O2. No acute respiratory distress.O2 saturation 93% on 2 litres O2. Patient breathing much better than when she is admitted. Wanted to go home. When patient discharged can come for pulmonary follow up as out patient in 1 or 2 weeks. Objective Vital Signs - 12hr 09/12/18 09/12/18 09/12/18 08:35 08:49 10:00 Temperature Pulse Rate Pulse Rate [ 74 76 Anterior Bilateral Throughout] Respiratory Rate Respiratory 18 18 Rate [Anterior Bilateral Throughout] Blood Pressure O2 Sat by Pulse 98 Oximetry 09/12/18 09/12/18 09/12/18 11:41 12:58 13:12 Temperature 98.0 F Pulse Rate 75 Pulse Rate [ 78 80 Anterior Bilateral Throughout] Respiratory 20 Rate Respiratory 18 18 Rate [Anterior Bilateral Throughout] Blood Pressure 116/61 O2 Sat by Pulse 93 Oximetry Constitutional: no acute distress, alert Eyes: non-icteric ENT: oropharynx moist Neck: supple, no JVD Ascultation: Bilateral: diminished breath sounds Cardiovascular: regular rate and rhythm Gastrointestinal: normoactive bowel sounds, soft, non-tender Integumentary: normal Extremities: no cyanosis, no edema Neurologic: normal mental status, non-focal exam, pupils equal and round, CN II- XII normal Psychiatric: mood appropriate CBC and BMP: 09/10/18 06:51 09/10/18 06:51 ABG, PT/INR, D-dimer: ABG POC ABG pH 7.347 (7.35-7.45) L 09/09/18 23:23 POC ABG pCO2 39.6 (35-45) 09/09/18 23:23 POC ABG pO2 67 (80-105) L 09/09/18 23:23 POC ABG HCO3 21.7 (22-26 mml/L) 09/09/18 23:23 POC ABG Total CO2 23 (23-27mmol/L) 09/09/18 23:23 POC ABG O2 Sat 92 09/09/18 23:23 Abnormal lab findings: Abnormal Labs 09/09/18 09/09/18 09/10/18 16:06 23:23 06:51 Seg Neuts % (Manual) 97.0 H Lymphocytes % (Manual) 2.0 L Lymphocytes # (Manual) 0.1 L POC ABG pH 7.347 L POC ABG pO2 67 L Creatinine 0.5 L Glucose POC Glucose Albumin 09/10/18 09/10/18 09/10/18 06:51 13:17 17:28 Seg Neuts % (Manual) Lymphocytes % (Manual) Lymphocytes # (Manual) POC ABG pH POC ABG pO2 Creatinine 0.5 L Glucose 140 H POC Glucose 317 H 165 H Albumin 3.8 L 09/10/18 09/11/18 09/11/18 22:35 07:49 11:33 Seg Neuts % (Manual) Lymphocytes % (Manual) Lymphocytes # (Manual) POC ABG pH POC ABG pO2 Creatinine Glucose POC Glucose 189 H 111 H 128 H Albumin 09/11/18 09/11/18 09/12/18 16:51 22:11 08:06 Seg Neuts % (Manual) Lymphocytes % (Manual) Lymphocytes # (Manual) POC ABG pH POC ABG pO2 Creatinine Glucose POC Glucose 106 H 164 H 109 H Albumin 09/12/18 09/12/18 11:27 16:42 Seg Neuts % (Manual) Lymphocytes % (Manual) Lymphocytes # (Manual) POC ABG pH POC ABG pO2 Creatinine Glucose POC Glucose 138 H 123 H Albumin
[2018-09-13] MEDS ORDERED: VITAMIN D2 PO SCH (10:00)
== END 2018-09-12 18:42 | disposition home health service (06) | DRG 189 ==
LOC: ED 15:37 → 3A 19:19
PROVIDERS: ADMIT Internal Medicine; ATTEND Internal Medicine
PROC: 4A033R1 Measurement of Arterial Saturation, Peripheral, Percutaneous Approach (ICD-10-PCS; principal; 2018-09-09)
PROC: 5A09357 Assistance with Respiratory Ventilation, Less than 24 Consecutive Hours, Continuous Positive Airway Pressure (ICD-10-PCS; 2018-09-09)
DX: J96.01 Acute respiratory failure with hypoxia (principal); J44.1 Chronic obstructive pulmonary disease with (acute) exacerbation; F17.210 Nicotine dependence, cigarettes, uncomplicated; E55.9 Vitamin D deficiency, unspecified; I25.10 Atherosclerotic heart disease of native coronary artery without angina pectoris; E11.65 Type 2 diabetes mellitus with hyperglycemia; I50.9 Heart failure, unspecified; I11.0 Hypertensive heart disease with heart failure; E11.42 Type 2 diabetes mellitus with diabetic polyneuropathy; K21.0 Gastro-esophageal reflux disease with esophagitis; F31.9 Bipolar disorder, unspecified; T38.0X5A Adverse effect of glucocorticoids and synthetic analogues, initial encounter; Y92.89 Other specified places as the place of occurrence of the external cause
CPT/HCPCS: 36415; 36600; 71046; 80053; 82803; 82962; 83036; 85007; 85025; 93005; 93010; 94640; 94660; 94760; G0378; J0456; J0696; J1650; J1815; J2270; J2405; J2930; J7030; J7050